=== PATIENT | female | born 1995 | race Caucasian/White ===

== ENCOUNTER 2024-08-12 12:22 | Day surgery (SDC) | payer BC, SELFPAY ==
--- NOTE | 2024-08-10 17:26 | PCM.HP.BLA ---
History and Physical Date of Admission: 08/12/24 This is a virtual visit using [employer] Video Visit. It required patient-provider interaction for the medical decision making as documented below. I have communicated my name and active licensure. The patient's identity and physical location were verified at the time of this visit. Either the patient or their legal software sales representative has been informed of the risks and benefits of -- and alternatives to -- treatment through a remote evaluation and consents to proceed with the evaluation remotely. Pre-Op History and Physical HPI: The patient is a 29 year old female presenting for pre-operative visit. She is scheduled for Hysteroscopy D&C, polypectomy on 08/12/24 For AUB, heavy menses, dysmenorrhea, endometrial polyps. Procedure discussed along with risks, benefits and complications. Other alternatives discussed for management. Consent form signed? Yes. PAST MEDICAL HISTORY PAST MEDICAL HISTORY Diagnosis Date ? Conductive hearing loss 2014 bilateral ? Generalized anxiety disorder ? IBS (irritable bowel syndrome) ? Irregular periods ? PCOS (polycystic ovarian syndrome) ? Psoriasis PAST SURGICAL HISTORY PAST SURGICAL HISTORY Procedure Laterality Date ? COLONOSCOPY SCREENING 2018 ? EXTRACTION ERUPTED TOOTH/EXR 2010 CURRENT MEDICATIONS Current Outpatient Medications Medication Sig Dispense Refill ? cholecalciferol, vitD3,/vit K2 (VITAMIN D3-VITAMIN K2 ORAL) Take by mouth. ? norethindrone (AYGESTIN) 5 mg tablet Take 1 tab TID until bleeding stops, then 1 tab BID x 3 days then 1 tab daily x 5 days 30 tablet 1 ? metFORMIN ER (GLUCOPHAGE XR) 750 mg 24 hr tablet Take 2 tablets by mouth daily with dinner. 60 tablet 2 ? medroxyPROGESTERone (PROVERA) 10 mg tablet Take 1 tablet by mouth once daily for 10 doses. 10 tablet 3 ? vit no.124/iron/folic ( VITAMIN ORAL) Take by mouth. No current facility-administered medications for this visit. ALLERGIES: Patient has no known allergies. PERSONAL HISTORY: SOCIAL HISTORY Social History Tobacco Use ? Smoking status: Never Passive exposure: Never ? Smokeless tobacco: Never Vaping Use ? Vaping status: Never Used Substance Use Topics ? Alcohol use: Not Currently ? Drug use: Never FAMILY HISTORY: FAMILY HISTORY FAMILY HISTORY Problem Relation Age of Onset ? Diabetes Father ? other (colon) Father part of colon removed ? Inherited Eye Disease Father 19 glasses since teenager ? Cataract Mother ? Inherited Eye Disease Mother Usher syndrome ? Heart Mother Heart failure ? Heart Failure Mother history ? other (blindness) Mother ? other (usher syndrome) Mother ? Retinitis Pigmentosa Mother ? Hearing Loss Mother ? Inherited Eye Disease Sister 9 glasses since youth 9 ? Hearing Loss Sister 2018 ? Cataract Maternal Grandmother ? other (sjogren) Maternal Grandmother ? Auto-Immune Disorder Maternal Grandmother Sjogren ? Heart Maternal Grandfather ? Hearing Loss Maternal Grandfather ? Cataract Maternal Grandfather ? Diabetes Paternal Grandmother ? Heart Failure Paternal Grandmother ? Heart Paternal Grandmother ? Inherited Eye Disease Paternal Grandfather glasses with age ? Alzheimer's Disease Paternal Grandfather ? Cataract Maternal Aunt ? Kidney Disease Maternal Aunt transplant recipient ? Inherited Eye Disease Maternal cousin glasses since youth ? Inherited Eye Disease Maternal cousin glasses since youth ? Inherited Eye Disease Maternal great-grandfather glasses ? Hearing Loss Maternal great-grandfather REVIEW OF SYMPTOMS: negative except as noted above PHYSICAL EXAMINATION: VITALS: Last menstrual period 05/30/2024. GENERAL: The patient is well nourished, well hydrated in no acute distress. , The patient is oriented to time, place, and person. IMPRESSION: 29yo with AUB, endometrial polyps, dysmenorrhea, heavy menses PLAN: hysteroscopy, D&C, polypectomy with symphion Pt has been counseled on risks/benefits and alternatives of surgery including but not limited to anesthesia, bleeding, infection, uterine perforation with subsequent injury to pelvic structures including bowel, bladder, ureters and vessels. Pt wishes to proceed with surgery at this time. Pre and post op instructions reviewed Consent signed by myself today- discussed with patient she will sign consent day of surgery. I have reviewed and updated past medical and surgical history, medications and allergies Sonia Live MD [facility] on 08/10/2024 Note shared with patient Additional Documentation Vitals: LMP 05/30/2024 Flowsheets: Patient-Reported Data, [facility] PDMP [employer] SmartForms: PHYSICIAN / PATIENT LOCATION ADVANCED Encounter Info: Billing Info, History, Allergies, Detailed Report
[2024-08-12] VITALS (9 sets, daily range): BP systolic 122–144; BP diastolic 74–96; PULSE 65–85; RESP 16–20; TEMP 36.2–36.6; O2SAT 98–100; BMI 37.3
[2024-08-12 12:50] LABS: Internal QC Validated? YES +Cl - CLEAR BKGD; Pregnancy, Urine Negative Negative
--- NOTE | 2024-08-12 13:25 | EMB_PTH ---
PATIENT: LUZMARIA ISLAS [place] [facility] [id number] AGE/SX: 29/F ROOM: RE08/12/[address]: Dr. Sonia Alvarado, MDDOB: 1995 BED: DIS: 08/12/2024 SPEC #: [id number] RECD: 08/12/24 16:25 STATUS: ROBERTA NELL #: [id number] JAMEL: 08/12/24 13:[address]: Sonia Alvarado DEPT: SURGICAL PATHOLOGY RECD BY: Zoë Ribeiro ENTERED: 08/13/24 08:22 SP TYPE: ENDOM BX/C ELVIN DR: No Primary Care Phys Tissues: Endometrium, NOS Procedures: Surgery Specimen Level IV HEADER OPERATION: Hysteroscopy, D&C, polypectomy PRE-OP DIAGNOSIS: Abnormal uterine bleeding , endometrial polyps, dysmenorrhea, heavy menses TISSUE SUBMITTED: Endometrial curettings and endometrial polyps MICROSCOPIC DIAGNOSIS Endometrial curettings and endometrial polyp, D&C and polypectomy: Proliferative endometrium. Numerous fragments of myometrium. See comment. GEOVANI 08/16/2024 COMMENT A few of the fragments of myometrium may represent submucosal leiomyoma. Clinical correlation and appropriate follow up are necessary. MICROSCOPIC DESCRIPTION Slides are reviewed. GROSS DESCRIPTION Received in fixative is one container labeled with the patient's name and designated Endometrial curerrtings and polyp. The specimen consists of multiple irregular fragments of goldsmith soft tissue mixed with goldsmith indurated tissue mixed with blood clot that in aggregate measure 5 x 3 x 0.3 cm. The specimen is totally submitted in two cassettes. GEOVANI 08/13/2024 TC:5 CPT:09299
--- NOTE | 2024-08-12 13:42 | PRE.ANES_ITS ---
ASA Classification* ASA Classification ASA Classification: 2 Assessment & Plan Anesthesia* Anesthesia Assessment Anesthesia Assessment: Discussed sedation and/or anesthesia options, risks, benefits, and alternatives with patient/parents/legal guardian/POA. Questions invited. The patient/parents/legal guardian/POA seems to understand and agrees to proceed with anesthesia plan. Reviewed the physical assessment, medical history, allergy history and patient home medications list prior to surgery/procedure/anesthetic and documented any changes. Performed airway and anesthesia risk assessments. Anesthesia Type Anesthesia Type: MAC History Source History Obtained from:: Patient and Chart Anesthesia Focused Assessment* Temperature: 97.8 F Pulse Rate: 65 Blood Pressure: 126/74 Respiratory Rate: 16 Pulse Ox: 100 Oxygen Delivery Method: Room Air Airway Assessment Mouth opens: >3 cm Mallampati Score: III Teeth Condition: Intact Neck Range of motion (ROM): Full ROM Focused Labs Anesthesia Preop lab: CBC CHEMISTRY COAG Urine Test Negative Negative 08/12/24 12:35 08/12/24 Pre-Assessment Diagnosis/Proposed Procedure Planned Operative Procedure(s): HYSTEROSCOPY, D&C, SYMPHION, POLYPECTOMY Anesthesia History Anesthesia History - continuous dryout operator helper: Anesthesia History - continuous dryout operator helper Hx Hospitalization No 08/05/24 13:23 Any Problems With Anesthesia No 08/05/24 13:23 Cholinesterase deficiency No 08/05/24 13:23 You/Your Family Experience No 08/05/24 13:23 fever (hyperthermia) with Relationship Recent Exposure to Contagious No 08/12/24 12:43 Disease Does patient have nerve No 08/05/24 13:23 stimulator Patient instructed to have device shut off --Does patient have Pacemaker No 08/12/24 12:43 or ICD? When Was Last Pacemaker Check QUESTION #4 FULL TEXT: You/Your Family Experience fever (hyperthermia) with Anesthesia Last Oral Intake Last Oral intake: Last Oral Intake NPO since 12:00 08/12/24 12:43 Meds taken in AM with sips of water? Meds patient instructed to take am of surgery PONV PONV - continuous dryout operator helper: PONV - continuous dryout operator helper Female Yes 08/05/24 13:23 HX of Motion Sickness No 08/05/24 13:23 HX of N/V After Surgery No 08/05/24 13:23 Non-Smoker Yes 08/05/24 13:23 Duration of Surgery greater No 08/05/24 13:23 than 60 minutes Number of Risk Factors 2 08/05/24 13:23 PONV Score Moderate Risk 08/05/24 13:23 Height & Weight Height & Weight: Anesthesia: Height & Weight Height 5 ft 3 in 08/12/24 12:43 Weight: 95.708 kg 08/12/24 12:43 Body Mass Index (BMI) 37.3 08/12/24 12:43 Respiratory Assessment Respiratory Assessment - continuous dryout operator helper: Respiratory Tract Infection Hx - continuous dryout operator helper Hx Respiratory Tract Infection No 08/05/24 13:23 STOP Sleep Apnea STOP Sleep Apnea - continuous dryout operator helper: STOP Sleep Apnea - continuous dryout operator helper Hx Hypertension No 08/05/24 13:23 Hx Sleep Apnea No 08/05/24 13:23 CPAP BIPAP Do you snore loudly (louder No 08/05/24 13:23 than talking or can be heard Do you often feel tired/ No 08/05/24 13:23 fatigued/ sleepy during daytime? Has anyone observed you stop No 08/05/24 13:23 breathing during sleep? STOP Results Negative 08/05/24 13:23 QUESTION #5 FULL TEXT : Do you snore loudly (louder than talking or can be heard through closed doors)? Tobacco Use History Tobacco Use History - continuous dryout operator helper: Tobacco Use History - continuous dryout operator helper Tobacco Use Smoking Status Never smoker 08/05/24 13:23 Hx Tobacco Use No 08/05/24 13:23 Years Smoking Packs Smoked per Day Smoking Cessation Date was within the last 15 years Hx Smoking Cessation Date Hx Smoking Cessation Counseling Hematologic Medial History Hematologic Hx - continuous dryout operator helper: Hematologic Medical Hx - converter skimmer Hx of Blood Transfusion No 08/05/24 13:23 Hx of Transfusion in last 3 No 08/05/24 13:23 Months Date of Last Transfusion (if within last 3 months) Ever experience any problems No 08/05/24 13:23 with transfusion(s)? Specify any problems Hx of Preganancy in last 3 No 08/05/24 13:23 Months Nurse Filling Out Transfusion [email or web address] 08/05/24 13:23 & Questions: Date: 08/05/24 08/05/24 13:23 Time: 13:08/05/24 13:23 Patient unable to answer at this time (ie. confused, unrespo /Reproduction History /Reproductive History - continuous dryout operator helper: /Reproductive Hx- continuous dryout operator helper Hx Now Gestational Age (in weeks): EDC: Hx Hx Para Hx Section SAB PFSH Medical History Anxiety Colonoscopy planned Home Medications ?Medication ?Instructions ?Recorded ?Last Taken ?Type medroxyprogesterone 10 mg tablet 10 mg PO DAILY Unknown History multivit no.40-iron 18 mg-folate 1 cap PO DAILY Unknown History comb no.1 1 mg-dha 300 mg capsule Allergy/AdvReac Type Severity Reaction Status Date / Time No Known Allergies Allergy Verified 08/12/24 12:42 Surgical History (Updated 08/12/24 @ 13:[address] Tony Muro MD) Normal colonoscopy H/O wisdom tooth extraction Social History Smoking Status: Never smoker Review of Systems (Anesthesia) ROS Narrative System reviewed and no additional complaints, except as documented.
--- NOTE | 2024-08-12 14:25 | PCM.OPRPT ---
Operative Report (Standard) Operative Information Date of Procedure: 08/12/24 Pre-Operative Diagnosis: AUB, endometrial polyp, dysmenorrhea Post-Operative Diagnosis: same Surgery/Procedure Performed: hysteroscopy, D&c, polypectomy clinical biostatistics director: No Type of Anesthesia: MAC RN Documented Start/Stop Times: Operation Date: 08/12/24 13:25 Case Time Into Pre-Op 08/12/24 12:25 Out of Pre-Op 08/12/24 13:49 Anesthesia Start 08/12/24 13:51 Into Room 08/12/24 13:51 Procedure Start 08/12/24 14:09 Procedure End 08/12/24 14:24 Procedure Start Time: 14:09 Procedure Stop Time: 14:24 Select all DRAINS/GRAFTS/IMPLANTS that apply: None Estimated Blood Loss: <5 Specimen collected: Yes Description of specimen(s) removed: endometrial curettings, endometrial polyp Description of surgery: Informed consent was obtained the patient was taken the operating room she was placed in supine position. She was given anesthesia. She was then placed in the [facility] where she was prepped and draped in the normal sterile fashion. At this time the weighted speculum was placed in the posterior fornix of vagina. Single-tooth tenaculum was used to gently grasp the anterior lip the cervix. At this time the uterine cavity was sounded to approximately 9 cm. Gentle dilatation was performed once adequate dilatation of the cervix was achieved the hysteroscope using normal saline as a distention medium was placed. cavity retroflexed. thickened endometrial tissue noted, possilbe polypoid tissue noted along fundal aspect. Symphion resecting device used to obtain endometrial curettings and to perform polypectomy. Tissue will be sent to pathology for evaluation. Tenaculum removed. Good hemostasis. Instrument, lap count correct x 2. Vaginal Sweep was negative. Surgical Findings: thickened tissue Complications Complications: No Admit VTE Documentation VTE Present on Admission: Yes VTE Mechan Device Prophylaxis: SCD's VTE Pharm Prophylaxis ordered?: No Reason prophylaxis not ordered: Treatment Not Indicated
--- NOTE | 2024-08-12 14:28 | PCM.DC ---
Discharge Instructions Diet Discharge Diet: No restrictions DC O2, CPAP, BIPAP needs Home O2 Discharge instructions: No Dressing / Incision May resume sexual activity in: 1 week Dressing / Incision Call your doctor if you observe: Fever of 101 or Higher, Inability to urinate, Using more than 1 pad per hour and Uncontrolled pain Follow Up Care Please Follow Up With: Sonia Alvarado MD When: i will call with pathology results in 1-2 weeks , if you feel you need to be seen please call [phone] Test Results: Test results from this visit will be discussed in further detail at your follow-up appointment, if applicable. Discharge Plan Admission Attending Provider: Sonia Alvarado Primary Care Provider: Care Physician,No Primary Instructions Print Language: Portuguese Discharge Orders/Prescriptions Prescriptions: No Action medroxyprogesterone 10 mg tablet 10 mg PO DAILY multivit [id number] 1-dha 18 mg iron- 1 mg-300 mg capsule 1 cap PO DAILY Disposition Disposition (needs filled in before D/C Order can be placed): Home, Self Care
--- NOTE | 2024-08-12 14:33 | PCM.POST.ANE ---
Anesthesia: Postop Eval I Current Vital Signs Temperature: 97.4 F Pulse Rate: 71 Blood Pressure: 128/80 Respiratory Rate: 20 Pulse Ox: 99 Oxygen Delivery Method: Room Air Assessment Airway patent: Yes Spontaneous unlabored respirations: Yes Mental status: Awake nausea: No Vomiting: No Anesthesia Complication: No Fluid Hydration Crystalloid volume administer (ml): 10 Total IV fluid infused: 10 Progress Note Anesthesia document: Postop Eval 1 completed: Yes
--- NOTE | 2024-08-12 18:50 | POSTOPAN2_ITS ---
Anesthesia Postop Eval I Sum Postop Eval Completion status Anesthesia document: Postop Eval 1 completed: Yes Anesthesia Postop Eval I Summary Anesthesia Postop Eval I Summary: Anesthesia Postop Eval I: Assessment Summary Airway patent Yes 08/12/24 14:34 STRUCTURAL LAYOUT WORKER.[email or web address] Spontaneous unlabored Yes 08/12/24 14:34 STRUCTURAL LAYOUT WORKER.JSWI respirations Mental status Awake 08/12/24 14:34 STRUCTURAL LAYOUT WORKER.JSWI nausea No 08/12/24 14:34 STRUCTURAL LAYOUT WORKER.JSWI Vomiting No 08/12/24 14:34 STRUCTURAL LAYOUT WORKER.JSWI Anesthesia Postop Eval I: Fluid Summary Crystalloid volume administer 10 08/12/24 14:34 STRUCTURAL LAYOUT WORKER.JSWI (ml) Colloids volume administered ( ml) Blood Product volume administered (ml) Total IV fluid infused 10 08/12/24 14:34 STRUCTURAL LAYOUT WORKER.JSWI Anesthesia Postop Eval I: Summary Notes Anesthesia Complication No 08/12/24 14:34 STRUCTURAL LAYOUT WORKER.JSWI Anesthesia Complication Comment: Post-operative progress note Anesthesia: Postop Eval II Evaluation Mental status: Awake and Calm Pain Level: 1 nausea: No Vomiting: No Complications Anesthesia Complication: No
--- NOTE | 2024-08-12 18:50 | PCM.POSTANE2 ---
Anesthesia Postop Eval I Sum Postop Eval Completion status Anesthesia document: Postop Eval 1 completed: Yes Anesthesia Postop Eval I Summary Anesthesia Postop Eval I Summary: Anesthesia Postop Eval I: Assessment Summary Airway patent Yes 08/12/24 14:34 RUG RECEIVING CLERK.[email or web address] Spontaneous unlabored Yes 08/12/24 14:34 RUG RECEIVING CLERK.JSWI respirations Mental status Awake 08/12/24 14:34 RUG RECEIVING CLERK.JSWI nausea No 08/12/24 14:34 RUG RECEIVING CLERK.JSWI Vomiting No 08/12/24 14:34 RUG RECEIVING CLERK.JSWI Anesthesia Postop Eval I: Fluid Summary Crystalloid volume administer 10 08/12/24 14:34 RUG RECEIVING CLERK.JSWI (ml) Colloids volume administered ( ml) Blood Product volume administered (ml) Total IV fluid infused 10 08/12/24 14:34 RUG RECEIVING CLERK.JSWI Anesthesia Postop Eval I: Summary Notes Anesthesia Complication No 08/12/24 14:34 RUG RECEIVING CLERK.JSWI Anesthesia Complication Comment: Post-operative progress note Anesthesia: Postop Eval II Evaluation Mental status: Awake and Calm Pain Level: 1 nausea: No Vomiting: No Complications Anesthesia Complication: No
== END 2024-08-12 15:28 | disposition home or self-care (01) ==
LOC: SDC 12:26 → AC 12:27
PROVIDERS: Anesthesiology; Visit Provider Obstetrics & Gynecology
PROC: 0UB98ZZ Excision of Uterus, Via Natural or Artificial Opening Endoscopic (ICD-10-PCS; CPT 58558; principal; 2024-08-12 13:10)
DX: N84.0 Polyp of corpus uteri (principal); N93.9 Abnormal uterine and vaginal bleeding, unspecified; N94.6 Dysmenorrhea, unspecified
CPT/HCPCS: 58558; 00952; 81025; 88305; A4216; J2405